=== PATIENT | male | born 1955 | race Caucasian/White ===

== ENCOUNTER 2019-09-01 08:46 | Observation (INO) ==
--- NOTE | 2019-08-20 21:05 | PAT Medication Instructions ---
Medication Instructions Date of Service August 20, 2019 Home Medications aspirin [Aspir-81] 81 mg PO QPM gabapentin 800 mg PO HS melatonin 10 mg PO HS PRN Take evening before surgery aspirin [Aspir-81] 81 mg PO QPM gabapentin 800 mg PO HS melatonin 10 mg PO HS PRN (if needed) Other Notes If you have any questions please call us at [phone] or [phone] or or [phone]
--- NOTE | 2019-08-21 13:32 | Anesthesiology Consultation ---
Date of Service August 21, 2019 Assessment & Plan (1) Encounter for pre-operative examination: Per PAT assessment on 08/20: Travel screen- lives in [facility], traveled to [facility] for shopping. No known COVID-19 positive contacts. No history of COVID-19 testing. No current COVID-19 related symptoms. Per patient, he is scheduled to have COVID-19 testing done 6/3 at surgeon's office per surgeon protocol. Awaiting results. Chart Review Chart Review: Acceptable Risk for Surgery (pending T&S and COVID-19 test results) and Patient seen in Pre Admission Testing Teaching & Discussion Pre-Anesthesia Teaching/Discussion Notes: Instructed NPO after midnight before surgery,except medications with 15 cc of water. Medication instructions p rovided according to the PAT guidelines. History Surgery Operation Date: 09/01/19 07:30 Proposed Procedures p Left Uni Compartment Knee Arthroplasty - Alfonso Silver, Height/Weight Height: 6 ft Weight: 113 kg Allergies Allergy/AdvReac Type Severity Reaction Status Date / Time No Known Allergies Allergy Verified 08/20/19 13:44 Medications Home Medications Medication Instructions Recorded Confirmed Last Taken aspirin [Aspir-81] 81 mg PO QPM 10/08/18 08/20/19 10/28/18 20:00 gabapentin 800 mg PO HS 10/08/18 08/20/19 Unknown melatonin 10 mg PO HS PRN 10/08/18 08/20/19 Unknown Past Medical History Medical History Hiatal hernia diagnosed during "virtual" EGD/colonoscopy at [facility] 03/2018 Hx of dislocation of shoulder right Neuropathy BLE Obesity Osteoarthritis Exercise / Class Metabolic Activity II 4-5 Yardwork/Stairs/Walk up hill Past Family History Family History Father Colon cancer Past Surgical History Surgical History Cataract RT/LEFT History of arthroscopy LEFT KNEE History of herniorrhaphy RT/LEFT INGUINAL HERNIA History of toe surgery LEFT FOOT (DISLOCATION/HARDWARE REMOVED) [place] teeth removed Past Anesthesia History No Hx of Anesthesia Complications and No Family Hx of Anesthesia Complications History of PONV No Hx of PONV and No Hx of Motion Sickness Social History Smoking Status: Never smoker Do You Dip or Chew Tobacco: No Hx Alcohol Use: Yes Alcohol type: wine alcohol intake frequency: 0-2 drinks per day (1 glass wine/night) Hx Substance Use: No substance use type: does not use Review of Systems Patient denies chest pain, shortness of breath, dyspnea on exertion, fever, chills cough, wheezing, palpitations. Physical Exam Vital Signs VITALS BP 120/77 P 64 TEMP 98.4 SP02 95%RA RESP 18 PHYSICAL Full neck and c-spine range of motion. Full TMJ range of motion. TMD 3.5 finger breaths Mallampati Score 2 Dentition: intact Lungs: clear throughout to auscultation Cardiac: regular rate and rhythm, no murmurs noted Spine: normal Carotid arteries: negative bruit Extremities: no edema Testing Laboratory Results 08/21/19 14:23 08/21/19 14:23 PT 10.9 Seconds (9.0-12.0) 08/21/19 14:23 INR 1.0 (0.9-1.1) 08/21/19 14:23 APTT 25.5 Seconds (21.0-31.0) 08/21/19 14:23 Electrocardiogram Date: 09/25/18 SB with PAC's at 49bpm. Otherwise "normal" ECG. Chest X-Ray Date: 08/21/19 Cardiac silhouette is upper limits of normal in size. Mild linear bibasilar left basilar opacities suggest atelectasis. No pneumothorax, pleural effusion, airspace consolidation or overt pulmonary edema. Degenerative changes of the shoulders and spine. IMPRESSION: No acute process.
--- NOTE | 2019-08-21 14:45 | XRay Report ---
XR chest Pre-admission PA/Lat HISTORY: 64 years-old Male PAT preoperative exam. No acute chest complaints COMPARISON: None TECHNIQUE: PA and lateral views of the chest FINDINGS: Cardiac silhouette is upper limits of normal in size. Mild linear bibasilar left basilar opacities [facility] atelectasis. No pneumothorax, pleural effusion, airspace consolidation or overt pulmonary edema . Degenerative changes of the shoulders and spine. IMPRESSION: No acute process. ACT 112: Negative or not required by law. The above report was generated using voice recognition software. It may contain grammatical, syntax o r spelling errors. Electronically signed by: Doe Mathew M.D. 08/21/2019 2:44 PM
[2019-08-21 14:55] LABS: Basophils # (auto) 0.02 K/uL (0-0.2); Basophils % (auto) 0.3 %; Eosinophils # (auto) 0.16 K/uL (0-0.5); Eosinophils % (auto) 2.8 %; Hematocrit (blood only) 45.5 % (42-52); Immature Granulocytes # (auto) 0.01 K/uL (0.00-0.02); Immature Granulocytes % (auto) 0.2 %; Lymphocytes # (auto) 1.22 K/uL (1.2-3.4); Lymphocytes % (auto) 21.1 %; Mean Corpuscular Hemoglobin 28.4 pg (25-34); Mean Platelet Volume 9.7 fL (7.4-10.4); Monocytes # (auto) 0.71 K/uL (0.11-0.59); Monocytes % (auto) 12.3 %; Neutrophils # (auto) 3.67 K/uL (1.4-6.5); Neutrophils % (auto) 63.3 %; Platelet Count 221 K/uL (130-400); RDW Coefficient of Variation 13.4 % (11.5-14.5); RDW Standard Deviation 42.2 fL (36.4-46.3); Red Blood Count 5.29 M/uL (4.7-6.1); White Blood Count 5.79 K/uL (4.8-10.8)
[2019-08-21 15:05] LABS: Partial Thromboplastin Ratio 0.9; Partial Thromboplastin Time 25.5 Seconds (21.0-31.0); Prothrombin Time 10.9 Seconds (9.0-12.0)
[2019-08-21 15:10] LABS: BUN Creatinine Ratio 26.8 (10-20); Calcium 8.9 mg/dl (8.5-10.1); Creatinine Clr Calc Pharmacy 91.9 ml/min; Est GFR (African American) 86.9; Potassium 3.9 mmol/L (3.5-5.1)
--- NOTE | 2019-08-28 08:30 | History & Physical Report ---
Date of Service August 28, 2019 Assessment & Plan (1) Osteoarthritis of left knee: We will proceed with a left unicompartmental knee arthroplasty. Postoperatively he will be kept overnight in the hospital for postop medical management and started on aspirin for DVT prophylaxis. He plans to go to physical therapy in [place] upon discharge. Michael is a low risk for knee replacement surgery without any major comorbidities. Present on Admission?: Yes History of Present Illness Chief Complaint: Primary osteoarthritis of the left knee Primary Care Provider: Karina Yanes Michael is a pleasant 64-year-old male who I did a left knee arthroscopy on a year ago. He was found to have significant medial compartment arthritis at that time. Over the past year his knee pain has waxed and waned. It is gotten worse recently. After failing extensive conservative treatment, he has elected to proceed with a left unicompartmental knee arthroplasty. Allergies Allergy/AdvReac Type Severity Reaction Status Date / Time No Known Allergies Allergy Verified 08/20/19 13:44 Home Medications Home Medications Medication Instructions Recorded Confirmed Type aspirin [Aspir-81] 81 mg PO QPM 10/08/18 08/20/19 History gabapentin 800 mg PO HS 10/08/18 08/20/19 History melatonin 10 mg PO HS PRN 10/08/18 08/20/19 History Past Med/Surg History Medical History Hiatal hernia diagnosed during "virtual" EGD/colonoscopy at [facility] 03/2018 Hx of dislocation of shoulder right Neuropathy BLE Obesity Osteoarthritis Surgical History Cataract RT/LEFT History of arthroscopy LEFT KNEE History of herniorrhaphy RT/LEFT INGUINAL HERNIA History of toe surgery LEFT FOOT (DISLOCATION/HARDWARE REMOVED) [place] teeth removed Family History Father Colon cancer Social History Preferred Language: Nigerian Communication Ability: Effective Glass Deposition Tender Required: No Beliefs That Will Affect Care: None Current Living Situation: Spouse Feels Safe at Home: Yes Smoking Status: Never smoker Second Hand Exposure: No ; Hx Alcohol Use: Yes Alcohol type: wine Hx Substance Use: No Review of Systems Review of Systems: All systems reviewed & are unremarkable except as noted in HPI & below Physical Exam Constitutional: WD/WN, vitals as above Eyes: PERRL, conjunctivae normal, anicteric sclerae ENMT: external ear and nose normal, oropharynx normal Neck: trachea midline, no thyromegaly Respiratory: normal respiratory effort Cardiovascular: RRR, no murmur, no edema Gastrointestinal (Abdomen): normal bowel sounds, soft, nontender, no hepatosplenomegaly Musculoskeletal: On physical examination of the left knee there is a trace effusion. There is near full range of motion and no evidence of instability. There is significant tenderness palpation along the medial and lateral joint lines and over the distal femoral condyles. Psychiatric: A+Ox3, euthymic affect Results & Data Results & Data ([facility]) Diagnostic Findings Radiographs of the left knee demonstrate advanced osteoarthritis with joint space narrowing osteophyte formation and evch-tr-teew articulation. PG Care Time/CCT Total # of Minutes Spent Total Time Spent with Patient: Total time spent is greater than 50% in co ordination of care (as documented) at patient's floor/unit and/or counseling patient: Coding Level of Care Code 32409 Initial Inpt Care Lvl 3 Diagnoses Osteoarthritis of left knee M17.12
[~2019-09-01 08:46] MED LIST: ACETAMINOPHEN 500 MG TAB PO SCH; CEFAZOLIN 2000MG 2,000 MG/15 ML SYR IV SCH; FAMOTIDINE 20 MG TAB PO SCH; GABAPENTIN 300 MG CAP PO SCH; LR 15ML/HR IV SCH; LR 500ML BOLUS, THEN 15ML/HR IV SCH; LR 60ML/HR IV SCH; ROPIVACAINE 0.5% HCL/PF 150 MG, BUPIVACAINE 0.5% MPF 30 ML, EPINEPHrine 30MG/30ML (OR U... INFIL SCH; TRANEXAMIC ACID 1,000 MG **IV Intra-op IV SCH; TRANEXAMIC ACID 1,000 MG **IV Pre-op IV SCH; dexAMETHasone 4 MG TAB PO SCH
[2019-09-01] MEDS ORDERED: BUPIVACAINE/EPINEPHRINE 0.25% 1:200,000 30 ML VIAL ONE (09:39)
[2019-09-01] MEDS ORDERED: BUPIVACAINE 0.5 % 5 MG/1 ML PF 10ML VIAL ONE (09:39)
[2019-09-01] MEDS ORDERED: PROPOFOL IV EMULSION 10 MG/ML 20 ML VIAL IV ONE ×2 (09:52→12:32)
[2019-09-01] MEDS ORDERED: fentaNYL citrate 100 MCG/2 ML VIAL ONE (09:52)
[2019-09-01] MEDS ORDERED: LIDOCAINE HCL 2% 2 ML VIAL/AMP(20MG/ML) INFIL ONE (09:52)
[2019-09-01] MEDS ORDERED: MIDAZOLAM HCL 1 MG/ML 2ML VIAL ONE (09:52)
[2019-09-01] MEDS ORDERED: fentaNYL citrate 100 MCG/2 ML VIAL IV PRN (09:56)
[2019-09-01] MEDS ORDERED: ePHEDrine sulfate 50 MG/ML AMP IV PRN (09:56)
[2019-09-01] MEDS ORDERED: HYDROmorphone INJ 2 MG/ML SYR/VIAL IV PRN (09:56)
[2019-09-01] MEDS ORDERED: HYDROmorphone INJ 1 MG/ML SYRINGE IV PRN (09:56)
[2019-09-01] MEDS ORDERED: ONDANSETRON INJ 2 MG/ML 2 ML VIAL IV PRN ×2 (09:56→14:15)
[2019-09-01] MEDS ORDERED: ATROPINE SULFATE 0.1 MG/ML 10ML SYR IV PRN (09:56)
--- NOTE | 2019-09-01 10:41 | History & Physical Bridge Note ---
Date of Service September 01, 2019 History & Physical Bridge Note I have examined the patient, reviewed the History & Physical and in the interval since the performance of the History & Physical I have noted the following changes of clinical significance: no changes noted
[2019-09-01] MEDS ORDERED: ORTHO JOINT ANESTHETIC ONE (11:02)
--- NOTE | 2019-09-01 12:34 | Operative Report ---
PG Post Operative Report Pre & Post Diagnosis Operation Date: 09/01/19 11:10 Pre-Op Diagnosis: Left Knee Degenerative Joint Disease Post-Op Diagnosis: Left Knee Degenerative Joint Disease I identified the patient and participated in the time-out.: Yes Procedure Operation Date: 09/01/19 11:10 Actual Procedures p Left Uni Compartment Knee Arthroplasty(Left) - Alfonso Silver DO Surgeon Alfonso Silver DO Cellophane Bath Mixer Alfonso Mendoza PAC Estimated Blood Loss 20 Findings Consistent with Post-Op Diagnosis Specimens Left femoral and tibial bone Complications none Disposition Disposition: Recovery Room Indications Michael is a pleasant 64-year-old male who is been dealing with chronic increasing left knee pain. I did a recent arthroscopy which showed advanced arthritis in the medial compartment of his left knee. After failing conservative treatment, he elected proceed with a left unicompartmental knee arthroplasty. Description of Procedure Implants used: I used a [employer] [place] unicompartmental knee arthroplasty system with a size medium femur, C tibia, and a size 3 mobile polyethylene bearing. All components were cemented in place with Pal[place]os G cement. Michael arrived [facility] for the above procedure. He was seen in the preoperative holding area and the operative extremity was identified and signed. He was given a preoperative antibiotic, TXA, a spinal anesthetic and an adductor nerve block. He was taken back to the operating room and laid on the table in the supine position. He was given basic sedation. The operative knee was then prepped and draped in sterile fashion. A timeout was done, and the patient and the operative extremity was properly identified. A midline incision was made from the superior pole of the patella down to the tibial tubercle. Dissection was taken down to the extensor mechanism and a subvastus arthrotomy was used. The medial retinaculum was released and a small portion of the fat pad was excised. The knee was then placed in a leg mendoza and the intra-articular portion of the knee was exposed. The medial meniscus was removed. The ACL was intact and the lateral compartment was inspected and there were no signs of any chondral damage. Several sizing spoons were used to measure the distal femur and it measured to be a size medium.The tibial saw guide was then placed externally over the shaft of the tibia. A 4 mm G clamp was used to clamp the spoon with the external tibial saw guide. 2 pins were placed. A reciprocating saw was then used to resect the tibia just medial to the apex of the medial tibial spine. An oscillating saw was then used to resect the tibial plateau. The tibial bone was then removed. The tibia measured to be a size C. The trochlea was then exposed. A 4 mm drill was sent down the center of the femoral canal followed by a long intramedullary pawel. A line was then marked in the center of the distal medial femoral condyle. A femoral drill guide was then placed and the IM link was used to connect the intramedullary pawel to the femoral drill guide. A 4 mm drill was used in the upper pole of the drill guide and a 6 mm drill was used in the lower pole of the drill guide. The drill guide was then removed. A posterior resection guide was then placed in the posterior femur was resected. A 0 spigot was then impacted in the 6 mm drill hole. The distal femur was then milled and osteophytes were removed. Femoral and tibial trials were then placed. A size 3 feeler gauge was used to measure the flexion gap in 100 of flexion. A size 1 feeler gauge was used to measure the extension gap in full extension. Trials were then removed and a size 2 spigot was then impacted in the 6 mm hole. The distal femur was once again milled. The anti- impingement guide was then impacted into place and an anterior mill was used to remove anterior bone and create clearance for the front of the bearing. The tibial template was then placed and the keel cut saw was used to resect for the keeled component. Trial components were then placed along with a size 3 mobile- bearing. The knee was brought through a full range of motion and felt to be stable. All trial components were then removed. Surrounding soft tissues were then injected with 50 cc of a pain control cocktail. Drill holes were placed in the distal femur to help with cement integration. The femoral and tibial components were then cemented in place with Palacos G cement. The size 3 mobile-bearing was then snapped into place. The knee was brought through a full range of motion and felt to be stable. The joint was then irrigated with normal saline solution. The tourniquet was deflated and hemostasis was obtained. The extensor mechanism was then closed with #1 Vicryl suture. Skin was closed with 2-0 Vicryl, 3-0V lock suture, and rosalba. A compressive dressing was then placed. He was then transferred to a hospital bed and taken to the postanesthesia care unit in stable condition. He tolerated the procedure well. Alfonso Mendoza PA-C, was present for the entire procedure. He was critical for patient positioning, prepping, draping, retraction exposure, wound closure and application of sterile dressing. I attest to the content of the Intraoperative Record and any orders documented therein. Any exceptions are noted below.
--- NOTE | 2019-09-01 13:21 | XRay Report ---
XR knee LT 1 or 2V routine HISTORY: 64 years-old Male Surgical Post Op degenerative joint disease of the left knee COMPARISON: Left knee MRI 09/20/2018 TECHNIQUE: 2 views of the left knee FINDINGS: Medial compartment hemiarthroplasty changes are noted with overlying anterior skin rosalba, expected postsurgical soft tissue swelling and deep tissue air with surgical drainage catheter. No acute fract ure, malalignment or retained foreign body identified. Mild patellofemoral and lateral compartment os teoarthritis. IMPRESSION: Medial compartment hemiarthroplasty with expected postoperative findings. ACT 112: Negative or not required by law. The above report was generated using voice recognition software. It may contain grammatical, syntax o r spelling errors. Electronically signed by: Doe Mathew M.D. 09/01/2019 1:20 PM
--- NOTE | 2019-09-01 14:00 | Anesthesiology Progress Note ---
Date of Service September 01, 2019 Anesthesia Post Procedure Vital Signs Vital Signs: Temp Pulse Pulse Resp BP BP Pulse Ox 09/01/19 13:55 36.6 C 66 15 130/85 95 09/01/19 13:45 36.6 C 58 L 10 L 118/75 98 09/01/19 13:35 59 L 14 115/71 97 09/01/19 13:25 62 14 133/62 99 09/01/19 13:15 64 19 110/71 96 09/01/19 13:05 66 13 100/56 L 98 09/01/19 12:55 36.3 C L 69 17 115/61 97 09/01/19 09:40 36.5 C 58 L 18 122/91 98 Pain Intensity Left Knee: Pain Intensity: 6 Transfer of Care Handoff Completed per policy Notes Mental Status: alert / awake / arousable and participated in evaluation Patient Amnestic to Procedure: Yes Nausea / Vomiting: adequately controlled Pain: adequately controlled Airway Patency, RR, SpO2: stable & adequate BP & HR: stable & adequate Hydration State: stable & adequate Neuraxial Anesthesia: was administered and sensory block is resolving Anesthetic Complications: no major complications apparent and Pt Satisfied with anesthetic care
[2019-09-01] MEDS ORDERED: METOCLOPRAMIDE HCL INJ 5 MG/ML 2 ML VIAL IV PRN (14:15)
[2019-09-01] MEDS ORDERED: SODIUM CHLORIDE 0.9% 1000ML 1,000 ML IV SCH (14:15)
[2019-09-01] MEDS ORDERED: HYDROmorphone INJ 0.5 MG/0.5 ML SYR IV PRN (14:15)
[2019-09-01] MEDS ORDERED: NALOXONE HCL 0.4 MG/1 ML VIAL/CARP IV PRN (14:15)
[2019-09-01] MEDS ORDERED: MAGNESIUM HYDROXIDE SUSP 30 ML UDC PO PRN (14:15)
[2019-09-01] MEDS ORDERED: bisacodyL 10 MG SUPP PR PRN (14:15)
[2019-09-01] MEDS ORDERED: OXYCODONE HCL IR 5 MG TAB (IMMEDIATE RELEASE) PO PRN (14:15)
[2019-09-01] MEDS: KETOROLAC TROMETHAMINE 15 MG/ML VIAL IV SCH ×2 (16:15→21:07)
[2019-09-01] MEDS: ACETAMINOPHEN 500 MG TAB PO SCH ×2 (16:15→21:07)
[2019-09-01] MEDS: CEFAZOLIN 2000MG 2,000 MG/15 ML SYR IV SCH (17:23)
[2019-09-01] MEDS ORDERED: GABAPENTIN 800 MG TAB PO SCH (21:00)
[2019-09-01] MEDS ORDERED: SENNA 8.6 MG TAB PO SCH (21:00)
[2019-09-01] MEDS: ASPIRIN 81 MG ECTAB PO SCH (21:07)
[2019-09-01] MEDS: DOCUSATE SODIUM 100 MG CAP PO SCH (21:07)
[2019-09-02] MEDS: CEFAZOLIN 2000MG 2,000 MG/15 ML SYR IV SCH (03:03)
[2019-09-02] MEDS: KETOROLAC TROMETHAMINE 15 MG/ML VIAL IV SCH (03:03)
[2019-09-02] MEDS: ACETAMINOPHEN 500 MG TAB PO SCH (05:42)
[2019-09-02 06:28] LABS: Hematocrit (blood only) 42.7 % (42-52); Hemoglobin 14.5 g/dL (14.0-18.0); Mean Corpuscular Hemoglobin 29.1 pg (25-34); Mean Corpuscular Volume 85.6 fL (80-100); Mean Platelet Volume 9.9 fL (7.4-10.4); Platelet Count 213 K/uL (130-400); RDW Coefficient of Variation 13.1 % (11.5-14.5); RDW Standard Deviation 41.1 fL (36.4-46.3); Red Blood Count 4.99 M/uL (4.7-6.1); White Blood Count 14.91 K/uL (4.8-10.8)
--- NOTE | 2019-09-02 06:47 | Orthopedic Progress Note ---
Date of Service September 02, 2019 Assessment & Plan (1) History of unicondylar arthroplasty of knee: Overall he is doing very well. Is not having much pain in the left knee. He will be seen by physical therapy this morning for ambulation and range of motion exercises. He can be discharged home later today. He will follow-up with orthopedics in 2 weeks. Present on Admission?: Yes Subjective Michael was seen and examined at bedside this morning. Overall he is doing well. He is not having much pain in the left knee. He has been up and ambulating. He has no complaints. Physical Exam Musculoskeletal: On physical examination of the left knee, the dressing is clean and dry. His leg is out in full extension. He has active dorsiflexion and plantarflexion of his left ankle. Results & Data ([facility]) Vital Signs (Past 12 Hours) Vital Signs Temp Pulse Resp BP BP Pulse Ox 09/02/19 03:01 36.4 C L 58 L 16 124/67 96 09/01/19 23:43 36.9 C 62 16 102/53 L 95 09/01/19 18:55 37.0 C 67 18 113/71 94 Laboratory Results H & H 08/21/19 09/02/19 Range/Units 14:23 05:50 Hgb 15.0 14.5 (14.0-18.0) g/dL Hct 45.5 42.7 (42-52) % Coagulation 08/21/19 Range/Units 14:23 INR 1.0 (0.9-1.1) Diagnostic Findings Postoperative x-rays of the left knee show the prosthesis to be in anatomic alignment without any evidence of fracture, dislocation, or loosening. PG Care Time/CCT Total # of Minutes Spent Total Time Spent with Patient: Total time spent is greater than 50% in coordination of care (as documented) at patient's floor/unit and/or counseling patient: Coding Level of Care Code None Diagnoses History of unicondylar arthroplasty of knee Z96.659
--- NOTE | 2019-09-02 06:49 | Discharge Summary ---
Date of Service September 02, 2019 Admission HPI Per Admitting Provider Michael is a pleasant 64-year-old male who I did a left knee arthroscopy on a year ago. He was found to have significant medial compartment arthritis at that time. Over the past year his knee pain has waxed and waned. It is gotten worse recently. After failing extensive conservative treatment, he has elected to proceed with a left unicompartmental knee arthroplasty. Principal Diagnosis Left partial knee replacement Discharge Data Allergies Allergy/AdvReac Type Severity Reaction Status Date / Time No Known Allergies Allergy Verified 09/01/19 09:35 Consultations 09/01/19 14:15 Consult Case Management - Discharge Planning Routine Procedures Performed Operation Date: 09/01/19 11:10 Actual Procedures p Left Uni Compartment Knee Arthroplasty(Left) - Alfonso Silver DO Ordered Studies 09/01/19 05:00 US - OR guided needle placemen Routine Hospital Course (1) History of unicondylar arthroplasty of knee: On September 01, 2019 Michael arrived at [facility] and underwent a left partial knee replacement without complication. He had a spinal anesthetic. Postoperatively he was started on aspirin for DVT prophylaxis and transferred to the general orthopedic floors. His hospital course was uneventful. On postop day #1 his H&H was stable and his pain was well controlled. He was able to up his feet well with physical therapy doing ambulation and range of motion exercises. He was then discharged home. He will follow-up with orthopedics in 2 weeks. Total Time Total Time Spent Total Time Spent (In Minutes): 20 Discharge Plan Discharge Items Patient Disposition: Home - Home Health Services Reason For Visit: Left Knee Degenerative Joint Disease Discharge Diagnosis: Left partial knee replacement Activity: As commented below Non-emergency contact: Surgeon Call non-emergency contact if: your wound has increased redness and your wound has increased drainage Follow-up/Referrals: Karina Yanes D.O. [Primary Care Provider] - Diet: Regular Addtl Attending Provider Instructions: Activity and Therapy Recommendations: * If you are using [facility] then therapy will be provided at your home until they feel you have accomplished all of your goals. * If you are using [facility] then Physical Therapy will be provided until they feel you are ready to start Outpatient Physical Therapy. * If you are not using home therapy then Outpatient Physical Therapy should start about 3-5 days from your day of surgery. Therapy will last about 6-10 weeks * It is important not to put a pillow under your knee when you are relaxing or sleeping. It is just as important to make sure you are getting your knee perfectly straight as it is to regain your knee bend. * You were shown a series of exercises in the hospital. Do these exercises three times each day including the exercises you were shown in physical therapy. * Get up and walk several times each day. For the first four weeks, try not to stand or walk for more than one hour at a time. If you do stand or walk for more than one hour, you will not hurt anything, but your leg will likely swell. * As you feel comfortable, you may change from the walker or crutches to a cane and then to independent walking. Medications: * Narcotic You will likely be sent home from the hospital with a prescription for the narcotic pain medication that worked best throughout your stay. * Aspirin Most patients will be required to take Aspirin 81mg twice a day for 6 weeks after surgery. This is obtained [id number] and a prescription is not necessary. * Other medications may be prescribed for specific circumstances. If you have any questions, please call the office at . * Resume previous home medications unless otherwise instructed TEDs/Elastic Stockings: The white elastic stockings help limit swelling and prevent blood clots from forming in your legs.~ The more you wear them, the more they work. Wear them for six weeks. Dressing Care: Leave the silver dressing on for 7 days. After 7 days you may remove the dressing. If the incision is not draining then you may leave the rosalba open to air. If there is a little bit of drainage or if the rosalba are getting stuck on your clothing then cover the incision with a dry dressing. The rosalba will be removed at your 2 week follow-up appointment. Showering: You may shower with the silver dressing in place. Do not scrub or soak the dressing. Pat it dry. After 7 days you may remove the dressing and shower with the rosalba exposed. Let the soapy shower water run over the rosalba and pat them dry. Do not scrub or soak the incision. Things To Watch For: * Drainage from the incision site that occurs more than one week after your surgery. * Increased redness at the incision site. * Fever above 102 degrees Fahrenheit. * Unusual chest pain or shortness of breath. * Call [facility] at with any of the above gale jain Follow-Up Visit: Follow-up with Dr. Silver's PA (Alfonso Mendoza) 2-3 weeks after your day of surgery. He will remove your rosalba and answer any questions. If you have any additional questions or concerns, Dr Silver is usually in the office at the same time and will be available An appointment was probably scheduled when you signed-up for surgery in the office. If you have any questions call Office Instructions: More detailed instructions as well as Frequently Asked Questions were provided in a folder by our office when you signed-up for surgery. Please review these instructions when you get home. If you have any further questions or concerns, please feel free to call the office at [phone] Pending Studies at Discharge: No Stand-Alone Forms: My [facility], Smoking Cessation Medications and DC Order Prescriptions: New oxycodone 5 mg Tablet 5 mg PO Q4H PRN (Reason: pain) Qty: 30 RF: 0 Continued gabapentin 800 mg Tablet 800 mg PO HS RF: 0 melatonin 10 mg Tablet 10 mg PO HS PRN (Reason: Sleep) RF: 0 Changed aspirin [Aspir-81] 81 mg Tablet,Delayed Release (Dr/Ec) 81 mg PO BID Qty: 0 RF: 0 Discharge Orders: Discharge Order (Routine); Ordered 09/02/19 Ordered By: Alfonso Silver Admission Data Admit Date/Time: 09/01/19 12:57 Attending Provider: Alfonso Silver Admit Provider: Alfonso Silver Primary Care Provider: Karina Yanes Coding Level of Care Code D/C Day Management <30 mins Diagnoses History of unicondylar arthroplasty of knee Z96.659
[2019-09-02 07:01] LABS: BUN Creatinine Ratio 19.8 (10-20); Calcium 8.3 mg/dl (8.5-10.1); Creatinine Clr Calc Pharmacy 86.9 ml/min; Est GFR (African American) 81.2; Est GFR (Non-African American) 70.1; Potassium 3.9 mmol/L (3.5-5.1)
[2019-09-02] MEDS ORDERED: dexAMETHasone 4 MG TAB PO SCH (08:00)
[2019-09-02] MEDS: ASPIRIN 81 MG ECTAB PO SCH (08:46)
[2019-09-02] MEDS: DOCUSATE SODIUM 100 MG CAP PO SCH (08:46)
[2019-09-02] MEDS ORDERED: MULTIVITAMIN TAB PO SCH (09:00)
== END 2019-09-02 11:13 | disposition home or self-care (01) ==
LOC: ASU 08:46 → 3E 08:46